=== PATIENT | male | born 2000 | race Two or more races ===

== ENCOUNTER 2018-12-19 18:58 | Emergency (ER) | payer OTHER ==
[2018-12-19 19:35] VITALS: BP 132/73
--- NOTE | 2018-12-19 20:55 | ER Document Report ---
ED General - General Chief Complaint: Penile Problem Stated Complaint: BURNING WITH URINATION Time Seen by Provider: 12/19/18 20:44 Notes: Patient is a 18-year-old male who presents to the emergency department with a chief complaint of lesions on his penis. Lesions were midshaft. He noticed them about 2 days ago. States that he squeezed them and clear liquid had come out. He states that he has had these before, but never had them checked before. Denies any fever, dysuria, or other symptoms. Past medical history includes insomnia. He takes trazodone for his insomnia. TRAVEL OUTSIDE OF THE [place] IN LAST 30 DAYS: No - Related Data Allergies/Adverse Reactions: No Known Allergies Allergy (Unverified 12/19/18 19:18) Past Medical History - Social History Smoking Status: Never Smoker Chew tobacco use (# tins/day): No Frequency of alcohol use: None Drug Abuse: None Family History: Reviewed & Not Pertinent Patient has suicidal ideation: No Patient has homicidal ideation: No Renal/ Medical History: Denies: Hx Peritoneal Dialysis Review of Systems - Review of Systems Notes: REVIEW OF SYSTEMS: CONSTITUTIONAL : Denies recent illness. Denies recent unintentional weight loss. Denies fever, chills, or sweats. EENT: Denies eye, ear, throat, or mouth pain, discharge, or symptoms. Denies nasal or sinus congestion. CARDIOVASCULAR: Denies chest pain. RESPIRATORY: Denies shortness of breath, cough, congestion, difficulty breathing, or wheezing. GASTROINTESTINAL: Denies nausea, vomiting, and diarrhea. Denies abdominal pain. Denies constipation. GENITOURINARY: Denies difficulty urinating, burning, blood in urine, urgency or frequency. MUSCULOSKELETAL: Denies neck and back pain. Denies joint pain or swelling. SKIN: Denies rash, itchiness, or lesions HEMATOLOGIC : Denies easy bruising or bleeding. LYMPHATIC: Denies swollen, painful, enlarged glands. NEUROLOGICAL: Denies no numbness or tingling denies weakness. Denies headache. Denies altered mental status. Denies alteration in speech. PSYCHIATRIC: Denies stress, anxiety, alteration in sleep patterns, or depression. REPRODUCTIVE: See HPI. All other systems reviewed and negative. Physical Exam - Vital signs Vitals: Temp Pulse Resp BP Pulse Ox 98.5 F 81 16 132/73 H 98 12/19/18 19:33 12/19/18 19:33 12/19/18 19:33 12/19/18 19:33 12/19/18 19:33 - Notes Notes: PHYSICAL EXAMINATION: GENERAL: Appears well, healthy, well-nourished, no acute distress. HEAD: Normocephalic, atraumatic. EYES: PERRL, conjunctiva normal, all extraocular movements intact, sclera nonicteric ENT: Moist mucous membranes. NECK: Supple, no noticeable swelling, redness, rash. Normal range of motion. LUNGS: Equal breath sounds bilaterally and clear to auscultation. No wheezes rales or rhonchi. CARDIOVASCULAR: S1-S2, regular rate, regular rhythm. Radial pulses 2+, normal. ABDOMEN: Normoactive bowel sounds. Soft, nontender, no guarding, no rebound tenderness, and no masses palpated. EXTREMITIES: Normal strength and range of motion, no pitting or edema. No cyanosis. NEUROLOGICAL: Moves all extremities upon command. Strength 5/5 in all extremities. PSYCH: Normal mood, normal affect. SKIN: Warm, dry. No rash, lesions, ulcerations noted. Normal skin turgor. Reproductive: 3 small open lesions noted to anterior portion of penile shaft. Tenderness upon palpation. No lesions noted on scrotum. Course - Re-evaluation Re-evalutation: 12/19/18 20:56 MADIHA Murguia was at bedside during physical exam. Patient has 3 small lesions noted to his penis. He adamantly denies dysuria, therefore urinalysis is not indicated. I do not suspect that these are abscesses, as the patient states that there was no purulent drainage. I suspect the patient has herpes simplex virus. He will be started on acyclovir. He will follow-up with a primary care provider. Verbal discharge instructions were given to the patient. They verbalized understanding. They are stable for discharge. - Vital Signs Vital signs: Temp Pulse Resp BP Pulse Ox 98.5 F 81 16 132/73 H 98 12/19/18 19:33 12/19/18 19:33 12/19/18 19:33 12/19/18 19:33 12/19/18 19:33 Discharge - Discharge Clinical Impression: HSV (herpes simplex virus) infection Condition: Stable Disposition: HOME, SELF-CARE Additional Instructions: You were seen today in the emergency department for lesions on your penis. They are consistent with herpes simplex virus. Please take antiviral medications as prescribed. Please do not have sex we have open lesions on your penis or scrotal area. If you have worsening symptoms, develop a fever greater than 100.4 F, or have any symptoms that are worrisome to you, please return to the emergency department. Prescriptions: Acyclovir [Zovirax 800 mg Tablet] 800 mg PO 5XD #50 tab
== END 2018-12-19 21:26 | disposition home or self-care (01) ==
LOC: ER 18:58
DX: B00.9 Herpesviral infection, unspecified (principal); G47.00 Insomnia, unspecified; Z79.899 Other long term (current) drug therapy
CPT/HCPCS: 99283